=== PATIENT | female | born 1960 | race Caucasian/White ===

== ENCOUNTER → 2016-10-06 | Outpatient (CLI) | payer BC ==
[2004-04-17 08:08] VITALS: TEMP 97.1
[~2016-10-06] MED LIST: CIPRO 500MG TA500 MG PO; NORCO 325 MG-51 TAB PO; ZOFRAN ODT4 MG PO
== END ==
LOC: MC.RAD 14:46
DX: Z12.31 Encounter for screening mammogram for malignant neoplasm of breast (principal)

== ENCOUNTER → 2020-05-28 | Outpatient (CLI) | payer BC ==
[2004-04-17 08:08] VITALS: TEMP 97.1
== END ==
LOC: MC.RAD 15:34
DX: Z12.31 Encounter for screening mammogram for malignant neoplasm of breast (principal)

== ENCOUNTER 2023-03-08 08:57 | Outpatient (RCR) | payer BC ==
[2004-04-17 08:08] VITALS: TEMP 97.1
== END 2023-03-09 | disposition home or self-care (01) ==
LOC: WSST
DX: R13.12 Dysphagia, oropharyngeal phase (principal)

== ENCOUNTER 2023-03-31 08:15 | Outpatient (RCR) | payer BC ==
[2004-04-17 08:08] VITALS: TEMP 97.1
== END 2023-04-09 | disposition home or self-care (01) ==
LOC: WSST
DX: R13.12 Dysphagia, oropharyngeal phase (principal)